=== PATIENT | female | born 1970 | race Caucasian/White ===

== ENCOUNTER → 2017-02-09 | Outpatient (CLI) | payer MEDICARE | LOC: KOH-I 09:02 | DX: R52 Pain, unspecified (principal); M47.816 Spondylosis without myelopathy or radiculopathy, lumbar region; M47.814 Spondylosis without myelopathy or radiculopathy, thoracic region; M50.323 Other cervical disc degeneration at C6-C7 level | CPT/HCPCS: 71020; 72050; 72070; 72110; 73130 ==

== ENCOUNTER 2021-01-13 09:29 | Emergency (ER) | payer OTHER ==
[2021-01-13] MEDS ORDERED: CLEOCIN HCL300 MG PO (10:52)
== END 2021-01-13 11:16 | disposition home or self-care (01) ==
LOC: ER1 09:29
DX: L03.011 Cellulitis of right finger (principal); J44.9 Chronic obstructive pulmonary disease, unspecified; F17.200 Nicotine dependence, unspecified, uncomplicated; Z90.49 Acquired absence of other specified parts of digestive tract; Z88.5 Allergy status to narcotic agent
CPT/HCPCS: 73130; 99283